=== PATIENT | male | born 1990 | race Caucasian/White ===

== ENCOUNTER 2016-10-03 14:20 | Inpatient (IN) | payer MEDICAID ==
[~2016-10-03] VITALS: Ht 177.8 cm; Wt 68.0 kg
--- NOTE | 2016-10-03 14:20 | NUR ---
Patient BIBA BLS on 5150 hold, transferred to bed 2. RN evaluating patient at bedside.
--- NOTE | 2016-10-03 14:26 | NUR ---
[place] [employer] at bedside.
[2016-10-03 14:39] VITALS: BP 122/82
--- NOTE | 2016-10-03 14:45 | NUR ---
PATIENT SHELBY PRESENTS TO ED WITH [place].PD 5150.SELF INFLICTED /SUPERFICIAL CUTS LT. ARM. NO ACTIVE BLEEDING.HARM TO SELF AND OTHERS. HX:BIPOLAR.NOT TAKING HIS MEDS. SEE 5150 REPORT; DENIES N/V/D; SKIN IS PINK/WARM/DRY; AAOX4 WITH EVEN AND STEADY GAIT; LUNGS CLEAR BL; HR EVEN AND REGULAR; PT DENIES ANY FEVER, CP, SOB, OR COUGH AT THIS TIME; PATIENT STATES PAIN OF 0/10 AT THIS TIME; VSS; PATIENT POSITIONED FOR COMFORT; HOB ELEVATED; BEDRAILS UP X2; BED DOWN. ER MD MADE AWARE OF PT STATUS.
[2016-10-03] MEDS ORDERED: LORA-476 PO (14:47)
[2016-10-03] MEDS ORDERED: OLAN20TA1 PO (14:47)
[2016-10-03 14:55] LABS: BASOPHILS # (AUTO) 0.1 K/uL (0.00-0.22); BASOPHILS % (AUTO) 1.6 % (0.0-2.0); EOSINOPHILS # (AUTO) 0.1 K/uL (0-0.4); EOSINOPHILS % (AUTO) 1.2 % (0.0-4.0); HEMATOCRIT 42.3 % (36-52); HEMOGLOBIN 14.2 g/dL (12.0-18.0); LYMPHOCYTES # (AUTO) 2.2 K/uL (2.0-11.5); LYMPHOCYTES % (AUTO) 27.9 % (20.5-51.1); MEAN CORPUSCULAR HEMOGLOBIN 28 pg (27-31); MEAN CORPUSCULAR HGB CONC 34 g/dL (33-37); MEAN CORPUSCULAR VOLUME 84 fL (80-94); MONOCYTES % (AUTO) 12.3 % (1.7-9.3); NEUTROPHILS # (AUTO) 4.5 K/uL (1.8-7.7); PLATELET COUNT (AUTO) 298 K/uL (140-450); RED BLOOD CELL COUNT(AUTO) 5.04 MIL/uL (4.20-6.10); RED CELL DISTRIBUTION WIDTH 12.6 % (11.6-13.7); WHITE BLOOD COUNT (AUTO) 7.9 K/uL (4.8-10.8)
[2016-10-03 15:10] LABS: ALANINE AMINOTRANSFERASE 92 U/L (12-78); ALBUMIN 4.1 g/dL (3.4-5.0); ALCOHOL, BLOOD < 3 mg/dL (<3); ALKALINE PHOSPHATASE 66 U/L (46-116); ANION GAP 13.6 (8-16); ASPARTATE AMINOTRANSFERASE 128 U/L (15-37); CALCIUM 8.7 mg/dL (8.5-10.1); CARBON DIOXIDE 29.1 mmol/L (21-32); CHLORIDE 102 mmol/L (98-107); CREATININE 0.8 mg/dL (0.6-1.3); GFR ARICAN-AMERICAN 149 mL/min (>90); GFR NON ARICAN-AMERICAN 123 mL/min (>90); GLUCOSE 89 mg/dL (74-106); POTASSIUM 3.7 mmol/L (3.5-5.1); SODIUM SERUM 141 mmol/L (136-145); TOTAL BILIRUBIN 0.6 mg/dL (0.0-1.0); TOTAL PROTEIN, SERUM 7.9 g/dL (6.4-8.2); UREA NITROGEN, BLOOD 15 mg/dL (7-18)
[2016-10-03 15:16] LABS: ACETAMINOPHEN < 0.5 ug/ml (10-30); SALICYLATE < 2.8 mg/dL (2.8-20.0)
[2016-10-03] MEDS ORDERED: LORazepam 2 MG/ML VIAL IM ONE (15:30)
[2016-10-03] MEDS ORDERED: diphenhydrAMINE 50 MG/ML VIAL IM ONE (15:30)
[2016-10-03] MEDS ORDERED: LORazepam 1 MG TAB PO ONE (15:40)
--- NOTE | 2016-10-03 15:45 | NUR ---
PT BECOME COMBATIVE, WALKING TOWARDS DOOR, DEMANDED TO HAVE CLOTHES, VERBALLY ABUSIVE, SECURITY CALLED PLACED ON 4 POINT RESTRAINT, MEDS GIVEN, SECURITY AT BEDSIDE
--- NOTE | 2016-10-03 16:36 | NUR ---
PT UNABLE TO PROVIDE URINE AT THIS TIME
--- NOTE | 2016-10-03 17:32 | NUR ---
PT MORE CALM , COOPERATIVE, RESTRAINTS TAKEN OFF , DINNER GIVEN AT BEDSIDE
--- NOTE | 2016-10-03 19:11 | NUR ---
REPORT GIVEN TO JORDYN SHARPE
--- NOTE | 2016-10-03 19:12 | NUR ---
Patient appears to be resting comfortably in bed. Vital Signs within normal limits. Respirations even and unlabored.
[2016-10-03 19:34] LABS: BILIRUBIN,URINE 1+ (NEGATIVE); BLOOD, URINE NEGATIVE (NEGATIVE); COLOR,URINE YELLOW (YELLOW); LEUKOCYTE ESTERASE ,URINE NEGATIVE (NEGATIVE); NITRITE, URINE NEGATIVE (NEGATIVE); PROTEIN,URINE NEGATIVE (NEGATIVE); UGLUCOSE NEGATIVE (NEGATIVE)
[2016-10-03 19:41] LABS: APPEARANCE,URINE CLEAR (CLEAR)
[2016-10-03 19:48] LABS: AMPHETAMINE, URINE POS. ng/ml (NEG <=1000); BARBITURATE, URINE NEG. ng/ml (NEG <=200); BENZODIAZEPINE, URINE NEG. ng/mL (NEG <=200); CANNABINOID, URINE POS. ng/mL (NEG <=50); COCAINE, URINE NEG. ng/mL (NEG <=300); OPIATE, URINE NEG. ng/mL (NEG <=2000); PHENCYCLIDINE SCREEN,URINE NEG. ng/mL (NEG <=25)
[2016-10-03 19:50] LABS: BACTERIA,URINE None Seen /HPF (None Seen); RBC,URINE NONE SEEN /HPF (0-5); SQUAMOUS EPITHELIAL CELL,UR None Seen /LPF (0-3 (FEW)); WBC,URINE NONE SEEN /HPF (0-5)
--- NOTE | 2016-10-03 20:18 | NUR ---
Patient appears to be resting comfortably in bed. Vital Signs within normal limits. Respirations even and unlabored
--- NOTE | 2016-10-03 20:40 | NUR ---
Patient will be admitted to care of DR. PITTMAN. Admited to TELEMETRY Will go to room 123 B. Belongings list completed.
--- NOTE | 2016-10-03 20:56 | NUR ---
REPORT GIVEN TO DERREK COBB.
--- NOTE | 2016-10-03 21:20 | NUR ---
Admitted from [facility] with chief complaint of 5150, SUICIDAL IDEATION. A 26 y/o. Male, Appropriate. ALERT AWAKE ORIENTED X4. INITIAL ASSESSMENT DONE. NO S/S OF RESPIRATORY DISTRESS OR SOB NOTED. NO C/O PAIN OR ANY DISCOMFORT AT THIS TIME. JUST ASKING FOR FOOD TO EAT BECAUSE HE SAID HE'S HUNGRY. FOOD WAS PROVIDED AND HE EATS WELL. MULTIPLE SMALL CUTS ON THE LEFT ARM BUT NO SIGNS OF BLEEDING. CLEANSE IT WITH MILD SOAP AND WATER PAT DRY AND LEAVE OPEN TO AIR. PT STATES THAT HE HAS STILL THOUGHTS OF HURTING HIMSELF BUT THERE'S NO SPECIFIC TIME AND WAY HOW HE WILL DO IT. PT STATES THAT HE HAS NO THOUGHTS OF HURTING OTHERS. PLAN OF CARE REVIEWED TO PT AND VERBALIZED UNDERSTANDING. oriented to call light, bed, phone,television, bathroom, smoking policy, visiting hours, procedures, ID bracelet on. Belongings list checked. PT IS ON 1:1 MONITORING. WILL CONTINUE TO MONITOR.
[2016-10-04] VITALS: BP 129/71
--- NOTE | 2016-10-04 00:33 | NUR ---
PT IS SLEEPING RIGHT NOW BUT EASILY AROUSABLE. NO S/S OF ANY DISCOMFORT AT THIS TIME. ALL NEEDS ARE ATTENDED. 1:1 CLOSED MONITORING. WILL CONTINUE TO MONITOR.
[2016-10-04] MEDS ORDERED: ONDANSETRON 4 MG/2 ML VIAL IVP PRN (01:50)
[2016-10-04] MEDS ORDERED: MORPHINE SULFATE 2 MG/ML SYR IVP PRN (01:50)
[2016-10-04] MEDS ORDERED: LORazepam 2 MG/ML VIAL IVP PRN (01:50)
[2016-10-04] MEDS ORDERED: ACETAMINOPHEN 325 MG TAB PO PRN (01:50)
[2016-10-04] MEDS ORDERED: HYDROcodone/APAP 5/325 MG 1 TAB TAB PO PRN (01:50)
[2016-10-04] MEDS: NACL 0.9% 1,000 ML IV SCH ×2 (02:50→11:46)
[2016-10-04 04:00] VITALS: BP 125/73
--- NOTE | 2016-10-04 04:00 | NUR ---
PT REFUSED TO HAV SCD'S ON DESPITE EXPLAINING THE RISKS AND BENEFITS OF IT. PT STATES THAT HE DOESN'T NEED IT BECAUSE HE IS MOVING BY HIMSELF AND HE IS AMBULATORY WITH NO ASSISTANCE. WILL CONTINUE TO MONITOR.
--- NOTE | 2016-10-04 05:45 | NUR ---
AM CARE RENDERED. BED LINEN CHANGED. INSTRUCTED PT TO REPOSITION. PT STATES THAT HE STILL HAS A THOUGHT OF HURTING HIMSELF BUT NO DEFINITE TIME AND HOW HE WILL DO IT. PT STATES THAT HE HAS NO THOUGHTS OF HURTING OTHERS. WILL CONTINUE TO MONITOR. STILL 1:1 CLOSED MONITORING.
--- NOTE | 2016-10-04 07:05 | NUR ---
RECEIVED PATIENT REPORT. PATIENT ASLEEP NO S/S OF DISTRESS NOTED. PATIENT WITH 1:1 SITTER. LACERATIONS NOTED TO THE LEFT ARM AND LEFT LEG. IV TO THE LEFT ARM INTACT WITH IVF INFUSING WELL. PATIENT ON TELE MONITORING. BED LOWERED WITH CALL LIGHT WITHIN REACH. WILL CONTINUE TO MONITOR
--- NOTE | 2016-10-04 07:23 | NUR ---
PT HAS NO S/S OF ANY DISCOMFORT. PLAN OF CARE ENDORSED TO COTY COBB AT BEDSIDE FOR CONTINUITY OF CARE.
[2016-10-04 07:40] LABS: FREE T4 (FREE THYROXINE) 0.87 ng/dL (0.76-1.46); MAGNESIUM 1.7 mg/dL (1.8-2.4); THYROID STIMULATING HORMONE 1.45 uIU/mL (0.34-3.76)
--- NOTE | 2016-10-04 07:57 | NUR ---
PATIENT HAS BEEN SCREENED AND CATEGORIZED LOW NUTRITION RISK. PATIENT WILL BE SEEN WITHIN 7 DAYS OF ADMISSION. 10/10/[address]
[2016-10-04 08:00] VITALS: BP 106/73
--- NOTE | 2016-10-04 08:30 | NUR ---
PATIENT SEEN BY DR CONSTANTINO. PATIENT COOPERATIVE AND CALM. PATIENT WITH 1:1 SITTER
[2016-10-04] MEDS ORDERED: MAGNESIUM OXIDE 400 MG TAB PO SCH (08:39)
[2016-10-04] MEDS ORDERED: OLANZapine 5 MG TAB PO SCH (09:00)
--- NOTE | 2016-10-04 10:29 | NUR ---
SS NOTE: FAXED PT INFORMATION FOR PSYCH PLACEMENT TO [facility], RECEIVED FAX CONFIRMATION
--- NOTE | 2016-10-04 10:40 | NUR ---
PT ASLEEP IN BED. NO S/S OF DISTRESS NOTED. PT WITH 1:1 SITTER.
[2016-10-04 12:00] VITALS: BP 106/60
--- NOTE | 2016-10-04 12:38 | NUR ---
CM NOTE PER POST ACUTE CARE NURSE PRACTITIONER KVNG, SEND REVIEWS TO [facility] AND [facility]. INITIAL REVIEW SENT TO [facility] FAX# [phone] PH# [phone] AND [address] [facility] [place] FAX# [phone] PH# [phone]
[2016-10-04] MEDS ORDERED: ACET-1182 PO (15:53)
[2016-10-04] MEDS ORDERED: ATI2I IVP (15:53)
[2016-10-04 16:00] VITALS: BP 128/65
--- NOTE | 2016-10-04 16:00 | NUR ---
PATIENT SEEN BY DR CARSON
--- NOTE | 2016-10-04 16:50 | NUR ---
PT REPORT GIVEN TO KIM FROM [facility] IN [place].
[2016-10-04 16:53] VITALS: BP 128/65
--- NOTE | 2016-10-04 17:55 | NUR ---
PT HAS BEEN DISCHARGE. ALL PAPERWORK SIGNED. ALL QUESTIONS ANSWERED. ALL BELONGINGS IN PATIENTS POSSESSION. IV DISCONTINUED. TELE LEADS TAKEN OFF. PATIENT HAD TRANSPORT VIA [facility] TO [facility]. PATIENT HAD NO SIGNS OR SYMPTOMS OF DISTRESSED. PATIENT IN STABLE CONDITION.
[2016-10-05 08:27] LABS: HEMOGLOBIN A1C 5.4 % (4.8-5.6); T4 (THYROXINE) 7.2 ug/dL (4.5-12.0)
== END 2016-10-04 17:55 | DRG 52 ==
LOC: MED 14:20 → MTU 20:40
PROVIDERS: ADMIT Family Medicine; ATTEND Family Medicine
DX: G92 Toxic encephalopathy (principal); F31.5 Bipolar disorder, current episode depressed, severe, with psychotic features; E83.42 Hypomagnesemia; T43.625A Adverse effect of amphetamines, initial encounter; F43.10 Post-traumatic stress disorder, unspecified; R74.0 Nonspecific elevation of levels of transaminase and lactic acid dehydrogenase [LDH]; B19.20 Unspecified viral hepatitis C without hepatic coma; E83.39 Other disorders of phosphorus metabolism; F11.90 Opioid use, unspecified, uncomplicated; F12.20 Cannabis dependence, uncomplicated; F17.210 Nicotine dependence, cigarettes, uncomplicated; Z88.6 Allergy status to analgesic agent; Z88.8 Allergy status to other drugs, medicaments and biological substances; Z79.899 Other long term (current) drug therapy
CPT/HCPCS: 36415; 80053; 80305; 81001; 83036; 83735; 84100; 84436; 84439; 84443; 84479; 85025; 87081; 93005; 96372; 99285; G0480; G0482; J1200; J2060; J7030